=== PATIENT | male | born 1980 | race African-American/Black ===

== ENCOUNTER 2019-02-05 10:29 | Emergency (ER) | payer OTHER ==
[2019-02-05 10:39] VITALS: BMI 19.3
[2019-02-05] MEDS ORDERED: ACETAMINOPHEN 1000 MG/100 ML VIAL (NON FORMULARY) IVPB ONE (10:50)
[2019-02-05] MEDS ORDERED: DIPHTH,PERTUSS(ACELL),TET 0.5 ML DISP.SYRIN IM ONE ×2 (10:52→10:57)
[2019-02-05] MEDS ORDERED: ACETAMINOPHEN INJECTION 100 ML IVPB ONE (10:53)
[2019-02-05] MEDS ORDERED: morphine CARPU-JECT 2 MG/1 ML DISP.SYRIN IVPUSH ONE (11:00)
--- NOTE | 2019-02-05 11:00 | PDOC ---
History of Present Illness - General Chief Complaint: Wound Stated Complaint: LT PINKY CUT Time Seen by Provider: 02/05/19 10:47 - History of Present Illness Initial Comments: 02/05/19 11:11 38 year old man with no pmhx who presents with L pinky crush injury while at work. 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 He denies any significant loss of blood but noted that he could see bone under the injury. Patient is R handed. ROS GENERAL/CONSTITUTIONAL: No fever or chills. No weakness. HEAD, EYES, EARS, NOSE AND THROAT: No change in vision. No ear pain or discharge. No sore throat. CARDIOVASCULAR: No chest pain or shortness of breath RESPIRATORY: No cough, wheezing, or hemoptysis. GASTROINTESTINAL: No nausea, vomiting, diarrhea or constipation. GENITOURINARY: No dysuria, frequency, or change in urination. MUSCULOSKELETAL: No joint or muscle swelling or pain. No neck or back pain. SKIN: No rash PE GENERAL: Awake, alert, and fully oriented, in no acute distress HEAD: No signs of trauma, normocephalic, atraumatic EYES:EOMI, sclera anicteric, conjunctiva clear ENT: oropharynx clear without exudates. Moist mucosa NECK: Normal ROM, supple LUNGS: No distress, speaks full sentences, clear to auscultation bilaterally HEART: Regular rate and rhythm, normal S1 and S2, no murmurs, rubs or gallops, peripheral pulses normal and equal bilaterally. EXTREMITIES : + L 5th digit laceration underneath the nailbed, transection the dorsal 1/3 of the digit from DIP to tip. NV intact NEUROLOGICAL: Cranial nerves II through XII grossly intact. Normal speech, normal gait, no focal sensorimotor deficits SKIN: Warm, Dry, normal turgor, no rashes or lesions noted MDM DDX including but not limited to: r/o fx crush injury with nailbed involvement ED Course: Page sent to Hand Surgery Dr. Chen digital block performed by this card writer hand and attending Dr. Chen at bedside d/c iwth abx, pain control and surgical follow up strict return precautions Lara Aguilar, PGY2 Emergency Medicine Past History - Past Medical History Allergies/Adverse Reactions: Allergies Allergy/AdvReac Type Severity Reaction Status Date / Time No Known Allergies Allergy Verified 02/05/19 10:35 Home Medications: Ambulatory Orders Cephalexin Monohydrate [Keflex -] 500 mg PO QID 6 Days #24 capsule 02/05/19 Cephalexin Monohydrate [Keflex -] 500 mg PO QID 6 Days #24 capsule 02/05/19 Oxycodone HCl/Acetaminophen [Percocet 5-325 mg Tablet -] 1 tab PO Q8H PRN #12 tablet MDD 3 02/05/19 COPD: No - Immunization History Td Vaccination: No - Psycho Social/Smoking Cessation Hx Smoking History: Current some day smoker Information on smoking cessation initiated: No *Physical Exam - Vital Signs Last Vital Signs Temp Pulse Resp BP Pulse Ox 97.9 F 75 18 135/79 99 02/05/19 10:38 02/05/19 10:38 02/05/19 10:38 02/05/19 10:38 02/05/19 10:38 ED Treatment Course - LABORATORY CBC & Chemistry Diagram: 02/05/19 11:10 02/05/19 11:10 Discharge - Discharge Information Problems reviewed: Yes Clinical Impression/Diagnosis: Finger injury Condition: Stable Disposition: HOME - Admission No - Additional Discharge Information Prescriptions: Cephalexin Monohydrate [Keflex -] 500 mg PO QID 6 Days #24 capsule Cephalexin Monohydrate [Keflex -] 500 mg PO QID 6 Days #24 capsule Oxycodone HCl/Acetaminophen [Percocet 5-325 mg Tablet -] 1 tab PO Q8H PRN #12 tablet MDD 3 PRN Reason: Severe Pain - Follow up/Referral Referrals: Guero Chen MD [Staff Physician] - - Patient Discharge Instructions Patient Printed Discharge Instructions: DI for Finger Fracture Additional Instructions: Postoperative instructions: You had a repair of open tuft fracture left small finger tip on 02/05/[address] Guero Chen of [facility]. Activity: Resume your usual activities gradually, but no heavy exertion or lifting more than 10-15 pounds for 4-6 weeks. Please keep left hand dressing clean and dry until followup in 2 weeks. You may shower daily starting then, just pat the incision areas dry. No bath or swimming until skin incisions have healed. [place] should not need to be recovered with any dressings, unless you have been told otherwise. Eat lightly at first, but advance to your usual diet as tolerated. Pain: For pain, you may use and alternate Tylenol (acetaminophen) 1-2 pills and/ or ibuprofen 200 mg (1-3 pills) every 6 hours each as needed; this means that you can take one OR the other at 3-hour intervals. If you are prescribed a Tylenol/narcotic combination for severe pain, use it instead of plain Tylenol as needed and switch back when your pain starts decreasing. Do not take more than 4000 mg of acetaminophen in a day. Take medications as prescribed or indicated on the labeling. Follow-up: Call Dr. Chen office at [phone] to make your post procedures appointment (Thursday in approximately 2 weeks after procedure as advised). Clinic is held in the [facility] on the first floor of [facility]. Call the office if you have: * increasing pain not responsive to pain medication * fever of 101F or higher * vomiting * unusual or increasing bleeding or drainage from wounds * increasing redness or swelling at wound sites * inability to urinate Also, see your primary medical doctor within 1-2 weeks. - Post Discharge Activity Work/Back to School Note: Back to Work
[2019-02-05] MEDS ORDERED: MORPHINE SULFATE 2 MG/ML VIAL ONE (11:20)
[2019-02-05] MEDS ORDERED: CEFAZOLIN 2 GM in DEXTROSE 5%-WATER - 50 ML IVPB ONE (11:23)
[2019-02-05] MEDS ORDERED: LIDOCAINE HCL 1%, 10 MG/ML (50 mL VIAL) SQ ONE (11:28)
[2019-02-05] MEDS ORDERED: CEFAZOLIN 1 GM/D5W 1 GM/50 ML BAG ONE ×2 (11:29→11:35)
[2019-02-05 11:30] LABS: BASO % 1.2 % (0-2.0); EOS % 0.3 % (0-4.5); HEMATOCRIT 41.5 % (35.4-49); HEMOGLOBIN 14.2 GM/dL (11.7-16.9); LYMPH % 39.9 % (8-40); MCH 31.2 pg (25.7-33.7); MCHC 34.1 g/dl (32.0-35.9); MEAN CELL VOLUME 91.3 fl (80-96); MEAN PLT VOLUME 8.3 fl (7.5-11.1); MONO % 11.1 % (3.8-10.2); NEUT % 47.5 % (42.8-82.8); PLATELET COUNT 251 K/MM3 (134-434); RBC 4.55 M/mm3 (4.00-5.60); RDW 14.4 % (11.9-15.9); WHITE BLOOD COUNT 2.7 K/mm3 (4.0-10.0)
[2019-02-05] MEDS ORDERED: SODIUM CHLORIDE 1,000 ML IV SCH (11:30)
[2019-02-05] MEDS ORDERED: LIDOCAINE HCL 1%, 10 MG/ML (20ML VIAL) ONE (11:30)
[2019-02-05 11:59] LABS: ALBUMIN 4.2 g/dl (3.4-5.0); BILIRUBIN,TOTAL 0.3 mg/dL (0.2-1); BLOOD UREA NITROGEN 13.2 mg/dL (7-18); CALCIUM 9.4 mg/dL (8.5-10.1); POTASSIUM 4.1 mmol/L (3.5-5.1); TOT PROT 7.4 g/dl (6.4-8.2)
[2019-02-05 12:07] LABS: INR 0.9 (0.83-1.09); PROTHROMBIN TIME (PATIENT) 10.6 SEC (9.7-13.0)
[2019-02-05 12:10] LABS: ACTIVATED PTT 27.3 SECONDS (25.2-36.5)
--- NOTE | 2019-02-05 12:31 | PDOC ---
Attending Attestation - Resident Resident Name: Lara Aguilar - ED Attending Attestation I have performed the following: I have examined & evaluated the patient, The case was reviewed & discussed with the resident, I agree w/resident's findings & plan, Exceptions are as noted - HPI HPI: 02/05/19 12:28 Mr. Zeng is a 38 yo RHD M p/w crush injury to his left pinky finger. 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 EXTREMITIES : + L 5th digit laceration underneath the nailbed, transection the dorsal 1/3 of the digit from DIP to tip. NV intact NEUROLOGICAL: Cranial nerves II through XII grossly intact. Normal speech, normal gait, no focal sensorimotor deficits SKIN: as above - Medical Decision Making 02/05/19 12:30 38 yo RHD M presenting with left pinky laceration and fracture Will do Xray Tetanus Hand consult 02/05/19 12:31 Xray: distal phalynx fracture Case reviewed with Dr April Vasques He will see pt in the ER
--- NOTE | 2019-02-05 13:58 | CONSULT ---
Consult Consult Specialty:: Hand and Microsurgery Reason for Consultation:: left small finger crush injury - History of Present Illness Chief Complaint: left small finger injury History of Present Illness: 38yo RHD female no significant PMH presents with Left small finger crush injury while at work. It was crushed open in a tire machine. his employer was present. the accident happened this morning and he came to ED. 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 He denies any significant loss of blood but noted that he could see bone under the injury. We were called to assess - History Source History Provided By: Patient, Medical Record Limitations to Obtaining History: No Limitations - Alcohol/Substance Use Hx Alcohol Use: Yes History of Substance Use: reports: None - Smoking History Smoking history: Current some day smoker Have you smoked in the past 12 months: Yes - Social History Place of : Other History of Recent Travel: No Home Medications - Allergies Allergies/Adverse Reactions: Allergies Allergy/AdvReac Type Severity Reaction Status Date / Time No Known Allergies Allergy Verified 02/05/19 10:35 - Home Medications Home Medications: Ambulatory Orders Cephalexin Monohydrate [Keflex -] 500 mg PO QID 6 Days #24 capsule 02/05/19 Cephalexin Monohydrate [Keflex -] 500 mg PO QID 6 Days #24 capsule 02/05/19 Oxycodone HCl/Acetaminophen [Percocet 5-325 mg Tablet -] 1 tab PO Q8H PRN #12 tablet MDD 3 02/05/19 Family Medical History Family History: Denies Physical Exam Vital Signs: Vital Signs Temperature 97.9 F 02/05/19 10:38 Pulse Rate 75 02/05/19 10:38 Respiratory Rate 18 02/05/19 10:38 Blood Pressure 135/79 02/05/19 10:38 O2 Sat by Pulse Oximetry (%) 99 02/05/19 10:38 Constitutional: Yes: Well Nourished, No Distress, Calm Eyes: Yes: Conjunctiva Clear, EOM Intact HENT: Yes: Atraumatic, Normocephalic Neck: Yes: Supple, Trachea Midline Cardiovascular: Yes: Regular Rate and Rhythm, S1, S2 Respiratory: Yes: Regular, CTA Bilaterally Gastrointestinal: Yes: Normal Bowel Sounds, Soft. No: Tenderness ...Rectal Exam: Yes: Deferred Renal/: No: CVA Tenderness - Left, CVA Tenderness - Right Breast(s): No: Mass, Skin Changes Musculoskeletal: Yes: Other. No: Muscle Pain, Muscle Weakness Extremities: No: Cool, Cyanosis Edema: No Peripheral Pulses WNL: Yes Integumentary: Yes: Laceration (left small finger nailbed laceration 2cm , exposed dispalced distal phalanx fragment, nail plate avulsed.) Wound/Incision: Yes: Clean/Dry, Bleeding, Unapproximated Neurological: Yes: Alert, Oriented Psychiatric: Yes: Alert, Oriented Labs: CBC, BMP 02/05/19 11:10 02/05/19 11:10 Imaging - Results X-ray: Report Reviewed, Image Reviewed (left small finger distal phalanx fracture) Problem List - Problems (1) Crushing injury of left little finger, initial encounter Assessment/Plan: 38yo RHD male with left small finger distal Bedside repair of open tuft fracture PO antibiotics for 7 days adequate analgesia f/u in 2 weeks for suture removal strict one handed until follow-up Thank you for the opportunity to participate in the care of this patient. Problems reviewed: Yes Code(s): S67.197A - CRUSHING INJURY OF LEFT LITTLE FINGER, INITIAL ENCOUNTER (2) Open fracture of tuft of distal phalanx of finger Problems reviewed: Yes Code(s): S62.639B - DISP FX OF DISTAL PHALANX OF UNSP FINGER, INIT FOR OPN FX (3) Nailbed laceration, finger Problems reviewed: Yes Code(s): S61.319A - LACERATION W/O FB OF UNSP FINGER W DAMAGE TO NAIL, INIT Qualifiers: Encounter type: initial encounter Qualified Code(s): S61.319A - Laceration without foreign body of unspecified finger with damage to nail, initial encounter (4) Nail avulsion, finger Problems reviewed: Yes Qualifiers: Encounter type: initial encounter Qualified Code(s): S61.309A - Unspecified open wound of unspecified finger with damage to nail, initial encounter
[2019-02-05 14:03] VITALS: BP 121/83; PULSE 72; TEMP 98.2
--- NOTE | 2019-02-05 14:22 | PROC ---
Incision and Drainage Indication/Location: Leflt small finger open tuft frature laceration Repair Risks and Benefits Explained: Yes Consent on Chart: Yes Betadine cleansed: Yes Anesthesia: other (digital/ ring block) Drainage: Nylon 4-0 simple interrupted Irrigated with Normal Saline: Yes Plain packing: No Sterile Dressing Applied: Yes - Remarks Remarks: Informed consent obtained. Patient was prepped and draped in standard sterile fashion. Left small finger tip was blocked with 1% lidocaine. The defect was irrigated with saline irrigation 500ml. The phalanx was reduced and the nailbed was repaired in interrupted fashion. Bacitatrin and xeroform was used to cover and gauze, kerlex and david wrap with a finger splint.
== END 2019-02-05 14:11 | disposition home or self-care (01) ==
LOC: JER 10:29
PROC: 3E023BZ Introduction of Anesthetic Agent into Muscle, Percutaneous Approach (ICD-10-PCS; principal; 2019-02-05)
PROC: 3E03329 Introduction of Other Anti-infective into Peripheral Vein, Percutaneous Approach (ICD-10-PCS; 2019-02-05)
PROC: 3E033NZ Introduction of Analgesics, Hypnotics, Sedatives into Peripheral Vein, Percutaneous Approach (ICD-10-PCS; 2019-02-05)
PROC: 3E033NZ Introduction of Analgesics, Hypnotics, Sedatives into Peripheral Vein, Percutaneous Approach (ICD-10-PCS; 2019-02-05)
PROC: 3E0234Z Introduction of Serum, Toxoid and Vaccine into Muscle, Percutaneous Approach (ICD-10-PCS; 2019-02-05)
PROC: 0PSVXZZ Reposition Left Finger Phalanx, External Approach (ICD-10-PCS; 2019-02-05)
PROC: 0JQK0ZZ Repair Left Hand Subcutaneous Tissue and Fascia, Open Approach (ICD-10-PCS; 2019-02-05)
PROC: 2W3KX1Z Immobilization of Left Finger using Splint (ICD-10-PCS; 2019-02-05)
DX: S62.607B Fracture of unspecified phalanx of left little finger, initial encounter for open fracture (principal); S67.197A Crushing injury of left little finger, initial encounter; W31.89XA Contact with other specified machinery, initial encounter; Y93.89 Activity, other specified; Y92.69 Other specified industrial and construction area as the place of occurrence of the external cause; Y99.0 Civilian activity done for income or pay
CPT/HCPCS: 36415; 73130-TC-LT-FY; 80053; 85025; 85610; 85730; 90715; 99284-25; J0131; J7030